=== PATIENT | female | born 1970 | race Two or more races ===

== ENCOUNTER → 2022-10-01 | Emergency (ER) | payer OTHER ==
[~2022-10-01] VITALS: Ht 167.6 cm; Wt 115.7 kg
== END | disposition left against medical advice (07) ==
LOC: ER 17:37
DX: Z53.21 Procedure and treatment not carried out due to patient leaving prior to being seen by health care provider (principal)

== ENCOUNTER → 2022-10-05 | Emergency (ER) | payer OTHER ==
[~2022-10-05] VITALS: Ht 160 cm; Wt 117.9 kg
[~2022-10-05] MED LIST: PROPRANOLOL HCL20 MG PO
== END | disposition home or self-care (01) ==
LOC: ER 21:20
DX: R21 Rash and other nonspecific skin eruption (principal); Z91.013 Allergy to seafood; Z88.8 Allergy status to other drugs, medicaments and biological substances